=== PATIENT | female | born 1985 | race Caucasian/White ===

== ENCOUNTER 2018-01-08 00:52 | Inpatient (IN) | payer BC ==
[~2018-01-08] VITALS: Ht 157.5 cm; Wt 73.5 kg
[2018-01-08] MEDS ORDERED: LR 1,000 ML IV ONE (02:34)
[2018-01-08] MEDS ORDERED: LR 1,000 ML IV SCH ×3 (02:34→11:22)
[2018-01-08] MEDS ORDERED: OXYTOCIN/NORMAL SALINE 1,000 ML IV SCH (02:34)
[2018-01-08] MEDS ORDERED: NALBUPHINE HCL 10 MG/ML AMP IVP PRN (02:45)
[2018-01-08 03:26] LABS: BASOPHILS # (AUTO) 0.1 K/uL (0.0-0.2); BASOPHILS % (AUTO) 0.5 % (0.0-2.0); EOSINOPHILS # (AUTO) 0.1 K/uL (0.0-0.4); EOSINOPHILS % (AUTO) 0.6 % (0.0-4.0); HEMATOCRIT 35.4 % (36-48); HEMOGLOBIN 11.6 g/dL (12.0-16.0); LYMPHOCYTES # (AUTO) 2.4 K/uL (1.0-5.5); LYMPHOCYTES % (AUTO) 22.5 % (20.5-51.5); MEAN CORPUSCULAR HEMOGLOBIN 28 pg (27-31); MEAN CORPUSCULAR HGB CONC 33 % (32-36); MEAN CORPUSCULAR VOLUME 86 fL (79.0-98.0); MONOCYTES # (AUTO) 0.7 K/uL (0.0-1.0); MONOCYTES % (AUTO) 6.8 % (1.7-9.3); NEUTROPHILS # (AUTO) 7.4 K/uL (1.8-7.7); NEUTROPHILS % (AUTO) 69.6 % (40.0-70.0); PLATELET COUNT (AUTO) 215 K/uL (130-430); RED BLOOD CELL COUNT(AUTO) 4.13 MIL/uL (4.2-6.2); RED CELL DISTRIBUTION WIDTH 14.9 % (9.0-15.0); WHITE BLOOD COUNT (AUTO) 10.7 K/uL (4.8-10.8)
[2018-01-08] MEDS: KETOROLAC TROMETHAMINE 30 MG VIAL IVP SCH ×3 (05:00→23:16)
[2018-01-08] MEDS: CEFAZOLIN 1 GM IVPB PREMIX 50 ML IV SCH ×3 (05:00→23:20)
[2018-01-08] MEDS ORDERED: fentaNYL CITRATE/PF 100 MCG/2 ML AMP ONE (10:01)
[2018-01-08] MEDS ORDERED: ROPIVACAINE 0.2% 0 ML ONE (10:02)
[2018-01-08] MEDS ORDERED: OXYTOCIN 10 UNIT/ML VIAL IV ONE (10:10)
[2018-01-08] MEDS ORDERED: fentaNYL CITRATE/PF 100 MCG/2 ML AMP IVP ONE (10:10)
[2018-01-08] MEDS ORDERED: ONDANSETRON HCL 4 MG/2 ML VIAL IVP ONE (10:10)
[2018-01-08] MEDS ORDERED: NS IRRIG SOLN 1000 ML IR ONE (10:10)
[2018-01-08] MEDS ORDERED: LR 1,000 ML IV.SOLN IV ONE (10:10)
[2018-01-08] MEDS ORDERED: SEVOFLURANE 15 MIN GAS INH ONE (10:10)
[2018-01-08] MEDS ORDERED: MIDAZOLAM HCL 5 MG/5 ML VIAL IVP ONE (10:10)
[2018-01-08] MEDS ORDERED: CEFAZOLIN 2 GM IVPB PREMIX 50 ML IV ONE (10:10)
[2018-01-08] MEDS ORDERED: SUCCINYLCHOLINE CHLORIDE 20 MG/ML(QUELICIN) IVP ONE (10:10)
[2018-01-08] MEDS ORDERED: PROPOFOL 200MG/ 20ML VIAL (DIPRIVAN) IV ONE (10:10)
[2018-01-08] MEDS ORDERED: fentaNYL CITRATE 250 MCG/5 ML AMP IV ONE (10:10)
[2018-01-08] MEDS ORDERED: METOCLOPRAMIDE HCL 10 MG/2 ML VIAL IVP PRN (11:15)
[2018-01-08] MEDS ORDERED: MORPHINE 4 MG/ML INJ. SYRINGE IVP PRN ×3 (11:15)
[2018-01-08] MEDS ORDERED: OXYTOCIN/NORMAL SALINE 1,000 ML IV ONE (11:22)
[2018-01-08] MEDS ORDERED: BISACODYL 10 MG/SUPPOSITORY RC PRN (11:30)
[2018-01-08] MEDS ORDERED: ANUSOL 1 EA SUPP.RECT (PREPARATION H) RC PRN (11:30)
[2018-01-08] MEDS ORDERED: LANOLIN 7 GM OINT. TP PRN (11:30)
[2018-01-08] MEDS ORDERED: DIPH-TET-PERTUS Vaccine 0.5 ML VIAL (ADACEL) I.M. PRN (11:30)
[2018-01-08] MEDS ORDERED: MEASLES,MUMPS&RUBELLA VACC/PF 12500 UNIT/0.5 ML VIAL SUBQ PRN (11:30)
[2018-01-08] MEDS ORDERED: RHO(D) IMMUNE GLOBULIN/MALTOSE 1500 UNITS/1.3 ML (WINHRO) IM PRN (11:30)
[2018-01-08] MEDS ORDERED: KETOROLAC TROMETHAMINE 30 MG VIAL ONE (11:51)
[2018-01-08] MEDS ORDERED: KETOROLAC TROMETHAMINE 30 MG VIAL IM SCH (12:00)
[2018-01-08] MEDS: MEPERIDINE HCL/PF 50 MG/ML AMP IVP PRN ×2 (15:05→20:00)
[2018-01-08] MEDS ORDERED: MORPHINE 4 MG/ML INJ. SYRINGE ONE (15:23)
[2018-01-08 17:35] VITALS: BP_SYST 124
[2018-01-08] MEDS: DOCUSATE SODIUM 100 MG CAPSULE PO PRN (20:02)
[2018-01-08] MEDS: SIMETHICONE 80 MG TAB.CHEW PO PRN (20:03)
[2018-01-08] MEDS ORDERED: TEMAZEPAM 15 MG CAPSULE PO PRN (21:00)
[2018-01-09 05:46] LABS: BASOPHILS % (AUTO) 0.2 % (0.0-2.0); EOSINOPHILS % (AUTO) 0.3 % (0.0-4.0); HEMATOCRIT 26.6 % (36-48); HEMOGLOBIN 8.8 g/dL (12.0-16.0); LYMPHOCYTES # (AUTO) 1.9 K/uL (1.0-5.5); LYMPHOCYTES % (AUTO) 15.2 % (20.5-51.5); MEAN CORPUSCULAR HEMOGLOBIN 28 pg (27-31); MEAN CORPUSCULAR HGB CONC 33 % (32-36); MEAN CORPUSCULAR VOLUME 86 fL (79.0-98.0); MONOCYTES # (AUTO) 0.6 K/uL (0.0-1.0); NEUTROPHILS # (AUTO) 9.9 K/uL (1.8-7.7); NEUTROPHILS % (AUTO) 79.3 % (40.0-70.0); PLATELET COUNT (AUTO) 172 K/uL (130-430); RED BLOOD CELL COUNT(AUTO) 3.09 MIL/uL (4.2-6.2); WHITE BLOOD COUNT (AUTO) 12.4 K/uL (4.8-10.8)
[2018-01-09] MEDS: IBUPROFEN 600 MG TABLET PO SCH ×3 (06:00→17:40)
[2018-01-09] MEDS ORDERED: OXYCODONE/ACETAMINOPHEN 5-325 TABLET PO PRN (07:00)
[2018-01-09] MEDS: OXYCODONE/ACETAMINOPHEN 5-325 TABLET PO PRN (20:43)
[2018-01-09] MEDS: DOCUSATE SODIUM 100 MG CAPSULE PO PRN (20:43)
[2018-01-09] MEDS: SIMETHICONE 80 MG TAB.CHEW PO PRN (20:43)
[2018-01-10] MEDS: IBUPROFEN 600 MG TABLET PO SCH ×4 (00:13→23:30)
[2018-01-10] MEDS: OXYCODONE/ACETAMINOPHEN 5-325 TABLET PO PRN (03:03)
[2018-01-10] MEDS: SENNOSIDES/DOCUSATE SODIUM 1 TAB TABLET(SENOKOT-S) PO PRN ×2 (13:05→23:47)
[2018-01-10] MEDS: DOCUSATE SODIUM 100 MG CAPSULE PO PRN ×2 (13:05→23:47)
[2018-01-10] MEDS: SIMETHICONE 80 MG TAB.CHEW PO PRN (13:06)
[2018-01-10] MEDS: FERROUS SULFATE 325 MG TABLET.DR PO SCH (20:31)
[2018-01-11] MEDS: SENNOSIDES/DOCUSATE SODIUM 1 TAB TABLET(SENOKOT-S) PO PRN (12:32)
[2018-01-11] MEDS: IBUPROFEN 600 MG TABLET PO SCH (12:32)
[2018-01-11] MEDS: SIMETHICONE 80 MG TAB.CHEW PO PRN (12:33)
[2018-01-11] MEDS: FERROUS SULFATE 325 MG TABLET.DR PO SCH (12:33)
[2018-01-11] MEDS: DOCUSATE SODIUM 100 MG CAPSULE PO PRN (12:33)
== END 2018-01-11 16:45 | disposition home or self-care (01) | DRG 766 ==
LOC: SPU 02:20
PROVIDERS: ADMIT Obstetrics & Gynecology; ATTEND Obstetrics & Gynecology
PROC: 10D00Z1 Extraction of Products of Conception, Low, Open Approach (ICD-10-PCS; principal; 2018-01-08 10:00)
DX: O69.81X0 Labor and delivery complicated by cord around neck, without compression, not applicable or unspecified (principal); D50.9 Iron deficiency anemia, unspecified; O99.02 Anemia complicating childbirth; O76 Abnormality in fetal heart rate and rhythm complicating labor and delivery; Z37.0 Single live birth; Z3A.39 39 weeks gestation of pregnancy; Z91.14 Patient's other noncompliance with medication regimen
CPT/HCPCS: 36415; 74018; 83915; 85025; 86592; 86886; 86900; 86901; 94760; J0330; J0690; J1885; J2175; J2250; J2270; J2405; J2590; J2704; J2795; J3010; J7120